=== PATIENT | female | born 1980 | race Caucasian/White ===

== ENCOUNTER 2019-10-27 18:22 | Emergency (ER) | payer SELFPAY ==
[2019-10-27] MEDS ORDERED: SODIUM CHLORIDE 0.9% 1000ML 1,000 ML IVS ONE (19:39)
[2019-10-27] MEDS ORDERED: SODIUM CHLORIDE 0.9% (FLUSH) 10 ML SYG IV PRN (19:39)
[2019-10-27] MEDS ORDERED: ONDANSETRON INJ 4 MG/2 ML VIAL IV ONE (19:39)
[2019-10-27] MEDS ORDERED: MORPHINE SULFATE INJ 10 MG/ML VIAL IV ONE (19:40)
--- NOTE | 2019-10-27 20:26 | CT ---
EXAM: CT Abdomen and Pelvis Without Intravenous Contrast CLINICAL HISTORY: The patient is 39 years old and is Female; abd pain, bloody diarrhea TECHNIQUE: Axial computed tomography images of the abdomen and pelvis without intravenous contrast. Sagittal and coronal reformatted images were created and reviewed. This CT exam was performed using one or more of the following dose reduction techniques: automated exposure control, adjustment of the mA and/or kV according to patient size, and/or use of iterative reconstruction technique. Oral contrast was administered. COMPARISON: CT abdomen and pelvis with contrast May 04, 2014. FINDINGS: Lung bases: Unremarkable. No mass. No consolidation. ABDOMEN: Liver: Mild hepatomegaly. Gallbladder and bile ducts: 2 cm calcified stone in the gallbladder. No ductal dilation. Pancreas: Unremarkable. No ductal dilation. Spleen: Unremarkable. No splenomegaly. Adrenals: Unremarkable. No mass. Kidneys and ureters: Punctate left nephrolithiasis. No hydronephrosis or ureter stone. Stomach and bowel: Multiple areas of colon wall thickening, despite incomplete distention. No small bowel dilatation or obstruction. Stomach is unremarkable. PELVIS: Appendix: The visualized appendix is normal. No pericecal inflammation to suggest acute appendicitis. Bladder: Unremarkable. No stones. Reproductive: Unremarkable as visualized. ABDOMEN and PELVIS: Intraperitoneal space: Small amount of free fluid in the cul-de-sac, likely physiologic. No free air. Bones/joints: No acute fracture identified. No dislocation. Soft tissues: Unremarkable. Vasculature: Unremarkable. No abdominal aortic aneurysm. Lymph nodes: No pathologically enlarged lymph nodes. IMPRESSION: 1. Findings are consistent with colitis. 2. Mild hepatomegaly. 3. Cholelithiasis. 4. Punctate left nephrolithiasis. No hydronephrosis or ureter stone. Electronically signed by: Ashlyn Haines MD 10/27/2019 8:24 PM CDT
--- NOTE | 2019-10-27 21:00 | ED.PDOC ---
History of Present Illness - General Chief Complaint: Abdominal Pain Stated Complaint: abdominal pain Time Seen by Provider: 10/27/19 19:39 Information Source: patient, RN notes reviewed, Vital Signs reviewed Exam Limitations: no limitations - History of Present Illness Abdominal Pain Onset Location: LLQ Pain Radiation: no radiation Quality: severe Timing/Duration: days, other - 4 days Improving Factors: rest Worsening Factors: movement Associated Symptoms: denies symptoms Review of Systems - Review of Systems Constitutional: States: no symptoms reported EENTM: States: no symptoms reported Respiratory: States: no symptoms reported Cardiology: States: no symptoms reported Gastrointestinal/Abdominal: States: abdominal pain, diarrhea Genitourinary: States: see HPI Musculoskeletal: States: no symptoms reported Skin: States: no symptoms reported Neurological: States: no symptoms reported Past Medical History (General) - Patient Medical History Hx Congestive Heart Failure: No Hx Diabetes: No Surgical History: tonsillectomy - Vaccination History Hx Tetanus, Diphtheria Vaccination: No Hx Influenza Vaccination: No - Activities of Daily Living Hospice Agency (if applicable):: None - Female History Patient : No Family Medical History - Family History Mother Family History: Unknown Physical Exam - Physical Exam General Appearance: Alert, Obvious distress Eyes, Ears, Nose, Throat Exam: PERRL/EOMI, normal ENT inspection Neck: full range of motion, supple, normal inspection Respiratory: lungs clear, normal breath sounds, no respiratory distress, no accessory muscle use Cardiovascular/Chest: normal peripheral pulses, regular rate, rhythm, no gallop, no JVD, no murmur Gastrointestinal/Abdominal: normal bowel sounds, soft, tenderness - LUQ Back Exam: normal inspection, no CVA tenderness Extremity: normal range of motion, non-tender, normal inspection, other - gait normal Neurologic: no motor/sensory deficits, alert, normal mood/affect, oriented x 3 Skin Exam: normal color, warm/dry Departure - Departure Clinical Impression: Cholelithiasis Qualifiers: Cholelithiasis location: gallbladder Cholecystitis presence: without cholecystitis Biliary obstruction: without biliary obstruction Qualified Code(s): K80.20 - Calculus of gallbladder without cholecystitis without obstruction Disposition: Discharge to Home or Self Care Condition: Good Departure Forms: ED Discharge - Pt. Copy, Patient Portal Self Enrollment Instructions: DI for Abdominal Pain-Adult Prescriptions: Acetaminophen W/ Codeine [Tylenol W/ CODEINE #3] 1 ea PO Q6HR PRN 7 Days #20 PRN Reason: Moderate To Severe Pain Acetaminophen W/ Codeine [Tylenol W/ CODEINE #3] 1 ea PO Q6HR PRN 4 Days #20 ea PRN Reason: Moderate Pain metroNIDAZOLE [Flagyl] 500 mg PO BID 7 Days #14 tab Levofloxacin [Levaquin] 750 mg PO DAILY 7 Days #7 tablet Home Medications: Ambulatory Orders Acetaminophen W/ Codeine [Tylenol W/ CODEINE #3] 1 ea PO Q6HR PRN 4 Days #20 ea 10/27/19 Acetaminophen W/ Codeine [Tylenol W/ CODEINE #3] 1 ea PO Q6HR PRN 7 Days #20 10/27/19 Levofloxacin [Levaquin] 750 mg PO DAILY 7 Days #7 tablet 10/27/19 metroNIDAZOLE [Flagyl] 500 mg PO BID 7 Days #14 tab 10/27/19
[2019-10-27] MEDS ORDERED: levoFLOXacin 500 MG TAB PO ONE (21:13)
[2019-10-27] MEDS ORDERED: HYDROcodone 5MG/APAP 325MG 1 EA TAB PO ONE (21:14)
[2019-10-27] MEDS ORDERED: metroNIDAZOLE 500 MG TAB PO ONE (21:14)
[2019-10-27] MEDS ORDERED: levoFLOXacin 500 MG TAB ONE (21:36)
[2019-10-27 21:52] VITALS: BP 151/104; TEMP 96.7; O2SAT 98
== END 2019-10-27 21:45 | disposition home or self-care (01) ==
LOC: ER 18:22
DX: K80.20 Calculus of gallbladder without cholecystitis without obstruction (principal); R10.32 Left lower quadrant pain; R19.7 Diarrhea, unspecified
CPT/HCPCS: 36415; 74176; 80048; 80076; 81001; 84703; 85025; J2270; J2405; J7030